=== PATIENT | male | born 1970 | race Caucasian/White ===

== ENCOUNTER 2019-07-31 05:51 | Inpatient (IN) | payer BC ==
[2019-07-24 13:27] LABS: HEMATOCRIT 42.5 % (42.0-52.0); HEMOGLOBIN 13.6 gm/dL (14.0-18.0); MCH 26.9 pg (26.0-34.0); MCHC 32.1 g/dL (28.0-37.0); RBC 5.05 mil/uL (4.50-6.00); RDW 15.7 % (10.5-14.5); WBC 6.2 thou/uL (4.0-11.0)
[2019-07-24 13:45] LABS: ALBUMIN 3.8 g/dL (3.4-5.0); CALCIUM 8.7 mg/dL (8.5-10.1); CREATININE 1.3 mg/dL (0.7-1.3); POTASSIUM 4.6 mmol/L (3.5-5.1)
[2019-07-24 14:03] LABS: URINE BILIRUBIN NEGATIVE (Negative); URINE BLOOD NEGATIVE (Negative); URINE CLARITY CLEAR; URINE COLOR YELLOW; URINE GLUCOSE-RANDOM* NEGATIVE (Negative); URINE KETONES NEGATIVE (Negative); URINE LEUKOCYTES-REFLEX NEGATIVE (Negative); URINE NITRITE-REFLEX NEGATIVE (Negative); URINE PROTEIN (DIPSTICK) TRACE (Negative); URINE SPECIFIC GRAVITY >= 1.030 (1.005-1.035); URINE UROBILINOGEN 0.2 E.U./dl (0.2-1.0)
[2019-07-25 06:06] LABS: GLYCOHEMOGLOBIN (HGB A1C) 5.4 % (4.8-5.6)
[~2019-07-31] VITALS: Ht 172.7 cm; Wt 131.5 kg
[~2019-07-31 05:51] MED LIST: CARBAMAZEPINE200 M2 PO; CENTRUM SILVER1 EAC4 PO; CLONAZEPAM 1 MG1 M1 PO; CRESTOR20 MG PO; LISINOPRIL20 MG PO; METFORMIN HCL500 MG PO; MOBIC15 MG PO; NORVASC10 MG PO; RESTORIL30 MG PO; SEROQUEL XR 20200 MG PO
[2019-07-31 07:11] VITALS: BP 144/87
--- NOTE | 2019-07-31 10:04 | O ---
[facility] [place] [address] OPERATIVE REPORT Name: CHELLE CHRISTIANSON Room #: 150-1 ADM IN M.R.#: [id number] Admission: 07/31/19 Attend Phys: Juancarlos Bar MD Discharge: Date of : 68 Report #: [id number] THIS REPORT FOR: //name// CC: Juancarlos Hicks DATE OF SERVICE: 07/31/2019 PREOPERATIVE DIAGNOSIS: End-stage degenerative osteoarthritis, left knee with varus malalignment. POSTOPERATIVE DIAGNOSIS: End-stage degenerative osteoarthritis, left knee with varus malalignment. PROCEDURE: Left total knee arthroplasty. SURGEON: Juancarlos Bar M.D. INDICATIONS: This heavy moderately deconditioned 48-year-old gentleman has moderate chronic varus malalignment of both knees. He also has progressive degenerative osteoarthritis with complete loss of joint space in the medial compartment of both knees. He also has moderately severe degenerative change at the patella and mild change on the lateral side. We discussed treatment options and he understands the potential risks and benefits. He has elected to go ahead with left total knee arthroplasty. DESCRIPTION OF PROCEDURE: The patient was taken to the operating room where he was placed under general anesthesia. A femoral nerve block was also applied. Preoperative antibiotics were administered. The left knee and leg were meticulously prepped and draped. A thigh tourniquet was inflated to 300 mmHg. An anterior longitudinal skin incision was made and this was carried through the medial retinaculum and the patella reflected laterally. The Lockett and Nephew knee system was utilized. Intramedullary guides were used on both the femur and the tibia. The femur was cut in 5 degrees of valgus and the tibia cut perpendicular to long axis of the bone correcting the moderate varus malalignment. The femur seemed best suited for a size 5 femoral component. The tibia was best suited for a size 4 tibial component. Trial reduction resulted in good alignment, stability and range of motion when using an 11 mm polyethylene insert. The patellar surface was resected. 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 Nevertheless, this fragment seems to be stable and best left in place rather than resecting it. A 35 mm patellar button was able to be seated on the larger stable portion of the patella. A trial manipulation revealed satisfactory knee stability with full knee extension and flexion beyond 135 degrees. The patellar tracks nicely and appears to be stable. The trial components were removed. The intramedullary canal was blocked with bone block on both the femoral and tibial sides. [address] [address] OPERATIVE REPORT Name: CHELLE CHRISTIANSON Room #: 150-1 [facility] IN ..#: [id number] Admission: 07/31/19 Attend Phys: Juancarlos Bar MD Discharge: Date of : 68 Report #: [id number] methacrylate cement was mixed and injected into the porous surface of the tibia. The Lockett and Nephew size 4 tibial baseplate was applied. This was impacted into good position in appropriate rotation. A size 11 mm Legion cruciate retaining articular insert was then snapped into position. It seated nicely and appeared to be secure. The size 5 left cruciate retaining Legion porous femoral component was impacted on the distal femur. It also seated nicely and appeared to be secure. A 35 mm Damaris II patellar button was inserted with appropriate anchor holes and cement. It was secured with a patellar clamp until the cement had fully hardened. At this point, the range of motion, alignment and stability were once again assessed and felt to be acceptable. The patellar tracks nicely and is stable. The wound was copiously irrigated. A single Hemovac was left in the wound exiting through a separate stab incision. The fascia was closed with multiple #1 Vicryl sutures. The tourniquet was deflated after a total tourniquet time of 64 minutes. Good hemostasis was once again noted. The subcutaneous tissues were closed with 0 Monocryl. The skin was closed with skin shweta. A sterile dressing was applied. The patient was awakened and returned to recovery room in good condition. <ELECTRONICALLY SIGNED> By: Juancarlos Bar MD 07/31/19 1004 [id number] [id number] Juancarlos Bar MD /nt
[2019-07-31 11:50] VITALS: BP 112/70
[2019-07-31 12:27] VITALS: BP 125/83
[2019-07-31 12:41] VITALS: BP 146/98
[2019-07-31 14:58] VITALS: BP 139/76
[2019-07-31 20:00] VITALS: BP 137/84
[2019-07-31] MEDS ORDERED: CRESTOR5 MG PO (22:33)
[2019-07-31] MEDS ORDERED: QUETIAPINE FUM200 MG PO (22:34)
[2019-08-01 03:50] VITALS: BP 106/61
[2019-08-01 06:35] LABS: HEMOGLOBIN 10.7 gm/dL (14.0-18.0); MCHC 32.6 g/dL (28.0-37.0); MCV 82.8 fL (80.0-100.0); RBC 3.99 mil/uL (4.50-6.00); RDW 15.4 % (10.5-14.5); WBC 7.7 thou/uL (4.0-11.0)
[2019-08-01 07:45] VITALS: BP 139/91
[2019-08-01 17:12] VITALS: BP 155/99
[2019-08-01 19:56] VITALS: BP 159/97
[2019-08-02 05:26] LABS: HEMATOCRIT 33.8 % (42.0-52.0); HEMOGLOBIN 10.8 gm/dL (14.0-18.0); MCH 26.9 pg (26.0-34.0); MCV 83.9 fL (80.0-100.0); RBC 4.03 mil/uL (4.50-6.00); RDW 15.7 % (10.5-14.5); WBC 8.2 thou/uL (4.0-11.0)
[2019-08-02 05:44] VITALS: BP 140/94
[2019-08-02 08:21] VITALS: BP 129/83
[2019-08-02 18:34] VITALS: BP 140/83
[2019-08-02 19:28] VITALS: BP 129/78
[2019-08-03 05:08] VITALS: BP 128/85
[2019-08-03 06:17] LABS: HEMOGLOBIN 10.5 gm/dL (14.0-18.0); MCH 26.7 pg (26.0-34.0); MCHC 31.9 g/dL (28.0-37.0); MCV 83.6 fL (80.0-100.0); RBC 3.95 mil/uL (4.50-6.00); RDW 15.3 % (10.5-14.5); WBC 7.8 thou/uL (4.0-11.0)
[2019-08-03 07:30] VITALS: BP 133/78
[2019-08-03 08:00] VITALS: BP 133/78
[2019-08-03 12:41] VITALS: BP 133/78
[2019-08-03 12:42] VITALS: BP 133/78
[2019-08-03 13:10] VITALS: BP 133/78
--- NOTE | 2019-08-04 12:45 | D ---
[facility] [place] [address] DISCHARGE SUMMARY Name: CHELLE CHRISTIANSON Room #: 438-P [facility] IN .R.#: [id number] Admission: 07/31/19 Attend Phys: Juancarlos Bra MD Discharge: 08/03/19 Date of : 68 Report #: [id number] THIS REPORT FOR: //name// CC: Juancarlos Hicks DATE OF SERVICE: 08/03/2019 FINAL DIAGNOSES: 1. End-stage degenerative arthritis, left knee. 2. Diabetes. 3. Hypertension. 4. Obesity. OPERATION PROCEDURES: Left total knee replacement. HISTORY OF PRESENT ILLNESS: This heavy 48-year-old gentleman has moderate progressive degenerative osteoarthritis with varus malalignment of both knees. He is having more and more difficulty remaining active and has difficulty exercising for weight control. He is heavy and deconditioned. He has type 2 diabetes as well as hypertension. We discussed treatment options and he has reviewed this with his primary care physician. He has elected to go ahead with total knee replacement, anticipating him probably need bilateral procedures. Given his weight and limited rehab potential, we have elected to do one knee at a time. He is admitted at this time for left total knee arthroplasty. HOSPITAL COURSE: The patient was admitted and taken to the operating room on 07/31/2019. He underwent left total knee replacement, which he tolerated generally well. Postoperatively, he did have difficulty with pain control and weakness and therefore made slow progress with therapy. He did gradually get going and made better progress with use of a walker and was able to achieve independent ambulation. He is resuming his regular diabetic diet. He is back on his routine medications. He was placed on Lovenox during his initial hospital stay for anticoagulation prophylaxis. We have discussed options for discharge and he prefers not to use the injections nor Coumadin and Xarelto is contraindicated given his other medications. Given this, he prefers to go on low-dose aspirin, which I think is an acceptable option for him as he is up and around and functioning moving well. His other discharge medications include metformin 500 mg daily, carbamazepine 400 mg q.a.m. and 600 mg at bedtime, lisinopril 20 mg daily, amlodipine 10 mg daily, Crestor 20 mg daily, multivitamin once daily, Restoril 30 mg at bedtime as needed, clonazepam 2 mg at bedtime as needed, hydrocodone 10 mg q. 4-6 hours as needed for pain control, aspirin 81 mg daily. He will continue with gentle [place] [address] DISCHARGE SUMMARY Name: CHELLE CHRISTIANSON Room #: 438-P [facility] IN [facility].#: [id number] Admission: 07/31/19 Attend Phys: Juancarlos Bar MD Discharge: 08/03/19 Date of : 68 Report #: [id number] instructed by physical therapist. I will plan to see him back in my office early next week and we will start outpatient therapy at that time as well. <ELECTRONICALLY SIGNED> By: Juancarlos Bar MD 08/04/19 1245 [id number] Juancarlos Bar MD /nt
== END 2019-08-03 13:27 | disposition home or self-care (01) | DRG 470 ==
LOC: TBA 05:51 → PRE 11:34 → 4S 11:46 → PRE 12:35 → ENTRNSPT 08-03 13:00 → EDTRNSPTSTS 08-03 13:03 → 4S 08-03 13:27
PROVIDERS: ADMIT Orthopaedic Surgery
PROC: 5A09357 Assistance with Respiratory Ventilation, Less than 24 Consecutive Hours, Continuous Positive Airway Pressure (ICD-10-PCS; principal; 2019-07-31)
PROC: 0SRD0J9 Replacement of Left Knee Joint with Synthetic Substitute, Cemented, Open Approach (ICD-10-PCS; principal; 2019-07-31)
PROC: 5A09357 Assistance with Respiratory Ventilation, Less than 24 Consecutive Hours, Continuous Positive Airway Pressure (ICD-10-PCS; 2019-08-01)
PROC: 5A09357 Assistance with Respiratory Ventilation, Less than 24 Consecutive Hours, Continuous Positive Airway Pressure (ICD-10-PCS; 2019-08-02)
DX: M17.0 Bilateral primary osteoarthritis of knee (principal); Z68.41 Body mass index [BMI] 40.0-44.9, adult; E11.9 Type 2 diabetes mellitus without complications; I10 Essential (primary) hypertension; F31.9 Bipolar disorder, unspecified; E66.01 Morbid (severe) obesity due to excess calories; D64.9 Anemia, unspecified; K59.00 Constipation, unspecified; Z88.6 Allergy status to analgesic agent; Z79.82 Long term (current) use of aspirin; Z79.899 Other long term (current) drug therapy
CPT/HCPCS: 10102; 50010; 50101; 50415; 50954; 51130; 51225; 51412; 53364; 56525; 57095; 57104; 57181; 62110; 62900; 64042; 65131; 70005